=== PATIENT | female | born 1970 | race Two or more races ===

== ENCOUNTER 2022-02-26 18:59 | Inpatient (IN) | payer OTHER ==
[~2022-02-26] VITALS: Ht 144.8 cm; Wt 79.6 kg
[2022-02-26] MEDS ORDERED: LACTATED RINGER'S 2,000 ML IV ONE (19:45)
[2022-02-26 20:09] LABS: Basophils # (auto) 0 10 ^3/uL (0-0.2); Basophils % (auto) 0.5 % (0.0-2.0); Eosinophils # (auto) 0.1 10 ^3/uL (0-0.8); Eosinophils % (auto) 0.9 % (0.0-7.0); Hematocrit 45.2 % (36.0-46.0); Lymphocytes # (auto) 2.5 10 ^3/uL (0.4-5.4); Lymphocytes % (auto) 35.5 % (10.0-50.0); Mean Corpuscular Hemoglobin 30.2 pg (28.0-32.0); Mean Corpuscular Hgb Conc. 33.1 g/dL (32.0-36.0); Mean Corpuscular Volume 91.2 fL (80.0-100.0); Monocytes # (auto) 0.4 10 ^3/uL (0-1.3); Monocytes % (auto) 6.1 % (0.0-12.0); Nucleated Red Blood Cells % 0.1 %; Red Blood Cells 4.96 10^6/uL (4.0-5.20); Red Cell Distribution Width 12.9 % (11.8-14.3); White Blood Cell 6.9 10^3/uL (4.4-10.8)
[2022-02-26 20:34] LABS: Albumin 3.7 g/dL (3.4-5.0); BUN/Creatinine Ratio 17.6; Calcium 9.1 mg/dL (8.5-10.1); Potassium 4.2 mmol/L (3.5-5.1)
[2022-02-26 20:42] LABS: Bilirubin, Total 0.5 mg/dL (0.2-1.0); Total Protein 6.4 g/dL (6.4-8.2)
[2022-02-27] MEDS ORDERED: MECLIZINE HCL 25 MG TAB PO ONE (00:15)
[2022-02-27] MEDS ORDERED: ONDANSETRON HCL 4 MG/2 ML VIAL IV PRN (01:15)
[2022-02-27] MEDS ORDERED: DEXTROSE (50%) 50ML SYRG IV PRN (01:15)
[2022-02-27] MEDS: ACCU-CHEK COMFORT CURVE STRIP VI SCH ×5 (04:23→21:10)
[2022-02-27] MEDS: InsuLIN REG 1unit/0.01ml Soln (100units/ml) SC SCH ×5 (04:30→20:00)
[2022-02-27] MEDS: PANTOPRAZOLE 40 MG TAB PO SCH (09:32)
[2022-02-27] MEDS: SODIUM CHLORIDE 0.9% 1,000 ML IV SCH ×2 (11:22→21:09)
[2022-02-27] MEDS ORDERED: METF-370 PO ×2 (11:31→19:01)
[2022-02-27] MEDS ORDERED: MECL1TAB42 PO (11:35)
[2022-02-27] MEDS ORDERED: TRAM50TA2 PO (11:35)
[2022-02-27 12:00] LABS: Calcium 8.6 mg/dL (8.5-10.1); Potassium 4.3 mmol/L (3.5-5.1)
[2022-02-27 12:08] LABS: BUN/Creatinine Ratio 18.8; Magnesium 2.4 mg/dL (1.6-2.6); Phosphorus 3.1 mg/dL (2.5-4.90)
[2022-02-27 12:35] LABS: Cholesterol 215 mg/dL (< 200); HDL Cholesterol 33 mg/dL (40-59); Triglycerides 611 mg/dL (< 150)
[2022-02-27 16:46] LABS: Urine Bacteria NONE SEEN /hpf (None Seen); Urine Blood Negative /uL (Negative); Urine Mucus FEW (None Seen); Urine Specific Gravity 1.041 (1.001-1.035); Urine WBC 1 /hpf (0 - 5)
[2022-02-27] MEDS: INSULIN 70/30 1unit/0.01ml Susp (100units/ml) SC SCH (18:00)
[2022-02-27 18:29] VITALS: BP 123/82
[2022-02-27 20:00] VITALS: BP 98/54
[2022-02-27] MEDS: ERGOCALCIFEROL 50,000 UNIT(1.25MG) CAP PO SCH ×2 (21:06→21:53)
[2022-02-27 22:00] VITALS: BP 98/54
[2022-02-27] MEDS ORDERED: ATORVASTATIN 20 MG TAB PO SCH (22:00)
[2022-02-28] MEDS: InsuLIN REG 1unit/0.01ml Soln (100units/ml) SC SCH ×4 (00:44→12:15)
[2022-02-28] MEDS: SODIUM CHLORIDE 0.9% 1,000 ML IV SCH ×2 (03:15→12:14)
[2022-02-28] MEDS: ACCU-CHEK COMFORT CURVE STRIP VI SCH ×4 (04:23→12:14)
[2022-02-28 05:00] VITALS: BP 106/68
[2022-02-28 07:15] LABS: Calcium 7.9 mg/dL (8.5-10.1); Potassium 3.5 mmol/L (3.5-5.1)
[2022-02-28 07:18] LABS: BUN/Creatinine Ratio 31.3
[2022-02-28] MEDS: INSULIN 70/30 1unit/0.01ml Susp (100units/ml) SC SCH (08:55)
[2022-02-28 08:58] VITALS: BP 107/74
[2022-02-28] MEDS ORDERED: ATOR20TA50 PO (09:04)
[2022-02-28] MEDS ORDERED: BLOO1KIT60 XX (09:04)
[2022-02-28] MEDS ORDERED: ERGO1CAP23 PO (09:04)
[2022-02-28] MEDS ORDERED: INS7030I SC (09:04)
[2022-02-28] MEDS: PANTOPRAZOLE 40 MG TAB PO SCH (10:16)
[2022-02-28 12:32] VITALS: BP 104/62
[2022-02-28 13:00] VITALS: BP 104/62
== END 2022-02-28 15:00 | disposition home or self-care (01) | DRG 48 ==
LOC: ER 19:12 → OVERFLOW 02-27 01:09 → CENTRAL 02-27 17:35
PROVIDERS: ADMIT Nurse Practitioner; ATTEND Internal Medicine
DX: G90.8 Other disorders of autonomic nervous system (principal); E11.65 Type 2 diabetes mellitus with hyperglycemia; E55.9 Vitamin D deficiency, unspecified; E66.9 Obesity, unspecified; Z20.822 Contact with and (suspected) exposure to COVID-19; Z68.37 Body mass index [BMI] 37.0-37.9, adult; Z88.5 Allergy status to narcotic agent
CPT/HCPCS: 36415; 36600; 71046; 80048; 80053; 80061; 81001; 82010; 82043; 82306; 82805; 82962; 83036; 83735; 83880; 84100; 84443; 84484; 84702; 85025; 96360; 96361; 96372; G0378; J1815

== ENCOUNTER 2022-09-22 17:40 | Emergency (ER) | payer MEDICAID, OTHER ==
[~2022-09-22] VITALS: Ht 154.9 cm; Wt 79.0 kg
[~2022-09-22 17:40] MED LIST: ATOR20TA50 PO; BLOO1KIT60 XX; ERGO1CAP23 PO; INS7030I SC; MECL1TAB42 PO; METF-370 PO; TRAM50TA2 PO
[2022-09-22 19:44] LABS: Basophils # (auto) 0.1 10 ^3/uL (0-0.2); Basophils % (auto) 0.9 % (0.0-2.0); Eosinophils # (auto) 0.3 10 ^3/uL (0-0.8); Eosinophils % (auto) 4.5 % (0.0-7.0); Hematocrit 44.8 % (36.0-46.0); Hemoglobin 15.3 g/dL (12.2-16.2); Lymphocytes # (auto) 2.5 10 ^3/uL (0.4-5.4); Lymphocytes % (auto) 36.6 % (10.0-50.0); Mean Corpuscular Hemoglobin 31.6 pg (28.0-32.0); Mean Corpuscular Hgb Conc. 34.2 g/dL (32.0-36.0); Mean Corpuscular Volume 92.3 fL (80.0-100.0); Monocytes # (auto) 0.4 10 ^3/uL (0-1.3); Monocytes % (auto) 5.5 % (0.0-12.0); Neutrophils # (auto) 3.5 10 ^3/uL (1.6-8.6); Neutrophils % (auto) 52.5 % (37.0-80.0); Nucleated Red Blood Cells % 0.1 %; Red Blood Cells 4.86 10^6/uL (4.0-5.20); Red Cell Distribution Width 13.4 % (11.8-14.3); White Blood Cell 6.7 10^3/uL (4.4-10.8)
[2022-09-22 19:55] LABS: Potassium 4.7 mmol/L (3.5-5.1)
[2022-09-22 20:00] LABS: BUN/Creatinine Ratio 18.8; Bilirubin, Total 0.5 mg/dL (0.2-1.0); Calcium 9.9 mg/dL (8.5-10.1); Total Protein 6.8 g/dL (6.4-8.2)
[2022-09-22] MEDS ORDERED: PANT40TA2 PO (20:12)
[2022-09-22] MEDS ORDERED: INS7030I SC (20:12)
[2022-09-22 22:21] VITALS: BP 126/47
[2022-09-22] MEDS ORDERED: PANTOPRAZOLE 40 MG TAB PO ONE (22:30)
== END 2022-09-22 22:37 | disposition home or self-care (01) ==
LOC: ER 17:40
DX: R10.13 Epigastric pain (principal); E11.65 Type 2 diabetes mellitus with hyperglycemia; F32.9 Major depressive disorder, single episode, unspecified; E11.9 Type 2 diabetes mellitus without complications; I10 Essential (primary) hypertension; Z88.5 Allergy status to narcotic agent; Z79.899 Other long term (current) drug therapy; Z79.84 Long term (current) use of oral hypoglycemic drugs
CPT/HCPCS: 36415; 80053; 82962; 83690; 85025; 93005